=== PATIENT | female | born 1985 | race Caucasian/White ===

== ENCOUNTER 2019-01-12 19:27 | Emergency (ER) | payer BC ==
--- OUTSIDE RECORDS SUMMARY | 2019-01-12 19:30 | XMS REPORT ---
:1985 [facility] Address [address] [place] [address] Dr. Choi [address] [place] [id number] Care Team Providers Name Role Phone Unavailable Unavailable Unavailable Problems This patient has no known problems. Allergies, Adverse Reactions, Alerts This patient has no known allergies or adverse reactions. Medications This patient has no known medications.
[2019-01-12] MEDS ORDERED: NA CHLORIDE 0.9% 1,000 ML ONE (19:58)
[2019-01-12] MEDS ORDERED: MORPHINE 4 MG/ML SYR ONE (19:58)
[2019-01-12] MEDS ORDERED: ONDANSETRON 4 MG/2 ML VIAL ONE ×2 (19:58→23:57)
[2019-01-12 20:10] LABS: Absolute Lymphocytes (CBC) 2.6 K/uL (0.7-4.9); Basophils % 1.2 % (0-1.3); Hematocrit 43.8 % (36.0-45.0); Lymphocytes % 41.1 % (15.3-44.8); MPV 8.8 fL (7.6-11.3); RBC Red Blood Cell Count 4.81 M/uL (3.86-4.86)
[2019-01-12 20:26] LABS: Potassium 3.6 mmol/L (3.5-5.1)
[2019-01-12 20:32] LABS: Blood Morphology Comment NOT SEEN (NOT SEEN); Platelet Estimate ADEQ; Urine White Blood Cell Casts OK
[2019-01-12] MEDS ORDERED: FAMOTIDINE 20 MG/2 ML VIAL IV ONE (22:33)
--- NOTE | 2019-01-12 22:55 | ER ---
Nurse's Notes [facility] Name: Kayleen Catherine Age: 33 yrs Sex: Female : 1985 Arrival Date: 01/12/2019 Time: 19:30 Bed 19 Private MD: Diagnosis: Circumferential thickening of distal esophagus;Inability to tolerate PO intake Presentation: 01/12 19:44 Presenting complaint: Patient states: Vomiting since 1400 today, unable to tolerate lp1 drinking water; states hx of esophageal stricture; Complaint of chest pain. Transition of care: patient was not received from another setting of care. Onset of symptoms was January 12, 2019 at 14:00. Risk Assessment: Do you want to hurt yourself or someone else? Patient reports no desire to harm self or others. Initial Sepsis Screen: Does the patient meet any 2 criteria? No. Patient's initial sepsis screen is negative. Does the patient have a suspected source of infection? No. Patient's initial sepsis screen is negative. Care prior to arrival: None. 19:44 Method Of Arrival: Ambulatory lp1 19:44 Acuity: SELMA 3 lp1 Triage Assessment: 19:47 General: Appears uncomfortable. GI: Pt is actively vomiting. lp1 19:55 GI: Reports vomiting, since this afternoon. 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 - Social history:: Smoking status: Patient/guardian denies using tobacco. - Ebola Screening: : No symptoms or risks identified at this time. Screenin:47 Abuse screen: Denies threats or abuse. Denies injuries from another. Nutritional lp1 screening: No deficits noted. Tuberculosis screening: No symptoms or risk factors identified. Fall Risk None identified. Assessment: 19:55 General: Appears in no apparent distress. uncomfortable, Behavior is cooperative, cc3 anxious. Pain: Complains of pain in abdomen epigastric area. Neuro: Level of Consciousness is awake, alert, obeys commands, Oriented to person, place, time, situation, Appropriate for age. Cardiovascular: Denies chest pain, Capillary refill < 3 seconds Patient's skin is warm and dry. Respiratory: Airway is patent Respiratory effort is even, unlabored, Respiratory pattern is regular, symmetrical. GI: Abdomen is round non-distended. : No signs and/or symptoms were reported regarding the genitourinary system. EENT: No signs and/or symptoms were reported regarding the EENT system. Derm: Skin is intact, is healthy with good turgor, Skin is pink, warm \T\ dry. normal. Musculoskeletal: Circulation, motion, and sensation intact. Range of motion: intact in all extremities. 20:15 Reassessment: Patient appears in no apparent distress at this time. Patient and/or cc3 family updated on plan of care and expected duration. Pain level reassessed. Patient is alert, oriented x 3, equal unlabored respirations, skin warm/dry/pink. Patient said she sipped the soda 3x and she vomited 3x as well, GEORGES Moura informed. 20:45 Reassessment: Patient taken to CT scan department by the electrical electronics technician by wheelchair. cc3 21:02 Reassessment: Patient appears in no apparent distress at this time. Patient and/or cc3 family updated on plan of care and expected duration. Pain level reassessed. Patient is alert, oriented x 3, equal unlabored respirations, skin warm/dry/pink. Patient came back from CT scan department, awaiting result. Patient states feeling better. 22:24 Reassessment: Patient appears in no apparent distress at this time. Patient and/or cc3 family updated on plan of care and expected duration. Pain level reassessed. Patient is alert, oriented x 3, equal unlabored respirations, skin warm/dry/pink. Patient said she cannot tolerate drinking water, GEORGES Moura informed and said patient will be for transfer. 22:50 Reassessment: GEORGES Moura said the patient was accepted in [facility] but they don't cc3 have vacant beds as of the meantime, patient informed. 23:41 Reassessment: Patient appears in no apparent distress at this time. Patient and/or cc3 family updated on plan of care and expected duration. Pain level reassessed. Patient is alert, oriented x 3, equal unlabored respirations, skin warm/dry/pink. Patient tolerated to sip some water and said she felt a little better now though still nauseated, CUSTOMER SALES REPRESENTATIVE Martell informed. 01/13 00:15 Reassessment: Patient appears in no apparent distress at this time. Patient and/or cc3 family updated on plan of care and expected duration. Pain level reassessed. Patient is alert, oriented x 3, equal unlabored respirations, skin warm/dry/pink. Patient for transfer now to [facility] patient informed, report called and handed over to RN [place]. Transfer form completed and signed by the patient herself. ED statement distribution clerk Amy to call ground EMS for patient transport. 00:45 Reassessment: Patient appears in no apparent distress at this time. Patient and/or cc3 family updated on plan of care and expected duration. Pain level reassessed. Patient is alert, oriented x 3, equal unlabored respirations, skin warm/dry/pink. EMS came for patient transport. Patient left ER vitally stable by EMS stretcher. No valuables left in the patient's room. Patient states feeling better. Patient states symptoms have improved. Vital Signs: 01/12 19:45 BP 142 / 100; Pulse 134; Resp 18; Temp 97.6(TE); Pulse Ox 100% on R/A; Weight 77.11 kg; lp1 Height 5 ft. 8 in. (172.72 cm); Pain 8/10; 20:15 BP 122 / 94; Pulse 87; Resp 20 S; Pulse Ox 100% on R/A; cc3 21:06 BP 127 / 86; Pulse 78; Resp 20 S; Pulse Ox 100% on R/A; Pain 5/10; cc3 22:23 BP 122 / 86; Pulse 85; Resp 17 S; Pulse Ox 99% on R/A; cc3 23:41 BP 135 / 90; Pulse 76; Resp 18 S; Pulse Ox 100% on R/A; Pain 4/10; cc3 01/13 00:45 BP 116 / 88; Pulse 80; Resp 17 S; Pulse Ox 100% on R/A; Pain 4/10; cc3 01/12 19:45 Body Mass Index 25.85 (77.11 kg, 172.72 cm) lp1 ED Course: 01/12 19:30 Patient arrived in ED. cf2 19:43 Sangita Moura FNP-C [facility]. kb 19:43 Jose Guadalupe Veras MD is Attending Physician. kb 19:45 Triage completed. lp1 19:46 Arm band placed on. lp1 19:50 Inserted saline lock: 20 gauge in right antecubital area, using aseptic technique. cc3 Blood collected. 19:55 Shahrzad Freed is Primary Nurse. cc3 19:55 Patient has correct armband on for positive identification. Placed in gown. Bed in low cc3 position. Call light in reach. Side rails up X 1. Pulse ox on. NIBP on. 20:55 CT completed. Patient tolerated procedure well. Patient moved to CT via wheelchair. nj Patient moved back from CT. 21:10 CT Chest W/ Con In Process Unspecified. EDMS 01/13 00:50 No provider procedures requiring assistance completed. Patient transferred, IV remains cc3 in place. Administered Medications: 01/12 19:55 Drug: NS 0.9% 1000 ml Route: IV; Rate: 1000 ml; Site: right antecubital; cc3 21:15 Follow up: Response: No adverse reaction; IV Status: Completed infusion; IV Intake: cc3 1000ml 19:55 Drug: morphine 4 mg {Note: RASS 0.} Route: IVP; Site: right antecubital; cc3 21:07 Follow up: Response: No adverse reaction; Pain is decreased; RASS: Alert and Calm (0) cc3 20:00 Drug: Zofran 4 mg Route: IVP; Site: right antecubital; cc3 21:08 Follow up: Response: No adverse reaction; Nausea is decreased; Vomiting decreased cc3 22:35 Drug: Pepcid 20 mg Route: IVP; Site: right antecubital; cc3 23:00 Follow up: Response: No adverse reaction; Pain is unchanged, physician notified cc3 23:00 Drug: Glucagon 1 mg Route: IVP; Site: right antecubital; cc3 23:41 Follow up: Response: No adverse reaction; Marked relief of symptoms cc3 23:59 Drug: Zofran 4 mg Route: IVP; Site: right antecubital; cc3 01/13 00:30 Follow up: Response: No adverse reaction; Nausea is decreased cc3 Intake: 01/12 21:15 IV: 1000ml; Total: 1000ml. cc3 Outcome: 22:53 ER care complete, transfer ordered by MD. enriquez 01/13 00:50 Transferred by ground EMS to [facility], Transfer form completed. cc3 Condition: stable Instructed on the need for transfer. 00:58 Patient left the ED. cc3 Signatures: Dispatcher [employer] EDMS Sangita Moura, INDUCTION MACHINE SETTER-C INDUCTION MACHINE SETTER-Ckb Regla Acosta, RN RN lp1 Rene Gaston Charlene cc3 Nevaeh Umanzor cf2 Corrections: (The following items were deleted from the chart) 01/12 21:12 20:15 Reassessment: Patient said she sipped the soda 3x and she vomited 3x as well, CUSTOMER SALES REPRESENTATIVE cc3 Martell informed. cc3 22:36 22:24 Reassessment: Patient appears in no apparent distress at this time. Patient cc3 and/or family updated on plan of care and expected duration. Pain level reassessed. Patient is alert, oriented x 3, equal unlabored respirations, skin warm/dry/pink. Patient said she cannot tolerate drinking water, CUSTOMER SALES REPRESENTATIVE Martell informed. cc3 23:42 21:06 BP 127 / 86; Pulse 78bpm; Resp 20bpm; Spontaneous; Pulse Ox 100% RA; cc3 cc3 23:54 23:41 Reassessment: Patient appears in no apparent distress at this time. Patient cc3 and/or family updated on plan of care and expected duration. Pain level reassessed. Patient is alert, oriented x 3, equal unlabored respirations, skin warm/dry/pink. cc3 01/13 01:22 01/12 23:41 BP 135 / 90; Pulse 76bpm; Resp 18bpm; Spontaneous; Pulse Ox 100% RA; cc3 cc3 01/13 01: 00:45 BP 116 / 88; Pulse 80bpm; Resp 17bpm; Spontaneous; Pulse Ox 100% RA; cc3 cc3
--- NOTE | 2019-01-12 22:56 | EDPHYS ---
Physician Documentation [facility] Name: Kayleen Catherine Age: 33 yrs Sex: Female : 1985 Arrival Date: 01/12/2019 Time: 19:30 Bed 19 Private MD: ED Physician Jose Guadalupe Veras HPI: 01/12 21:38 This 33 yrs old Female presents to ER via Ambulatory with complaints of kb Nausea/Vomiting. 21:38 The patient presents to the emergency department with nausea, vomiting. Onset: The kb symptoms/episode began/occurred at 14:00. Possible causes: edith pill and peanuts possibly stuck in esophagus. The symptoms are aggravated by nothing. The symptoms are alleviated by nothing. Associated signs and symptoms: Pertinent positives: nausea, vomiting. Severity of symptoms: At their worst the symptoms were moderate in the emergency department the symptoms are unchanged. The patient has experienced similar episodes in the past, a few times. The patient has not recently seen a physician. Pt reports she has an esophageal sticture and thinks the edith that she took earlier got stuck. States she ate some nuts after that and has tried to drink water but has been vomiting since 1400. Unable to keep anything down. 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 - Social history:: Smoking status: Patient/guardian denies using tobacco. - Ebola Screening: : No symptoms or risks identified at this time. ROS: 21:37 Constitutional: Negative for fever, chills, and weight loss, ENT: Negative for injury, kb pain, and discharge, Neck: Negative for injury, pain, and swelling, Respiratory: Negative for shortness of breath, cough, wheezing, and pleuritic chest pain, Back: Negative for injury and pain, MS/Extremity: Negative for injury and deformity, Skin: Negative for injury, rash, and discoloration, Neuro: Negative for headache, weakness, numbness, tingling, and seizure. 21:37 Cardiovascular: Positive for chest pain. 21:37 Abdomen/GI: Positive for nausea and vomiting. Exam: 21:37 Head/Face: Normocephalic, atraumatic. ENT: Nares patent. No nasal discharge, no kb septal abnormalities noted. Tympanic membranes are normal and external auditory canals are clear. Oropharynx with no redness, swelling, or masses, exudates, or evidence of obstruction, uvula midline. Mucous membranes moist. Neck: Trachea midline, no thyromegaly or masses palpated, and no cervical lymphadenopathy. Supple, full range of motion without nuchal rigidity, or vertebral point tenderness. No Meningismus. Chest/axilla: Normal chest wall appearance and motion. Nontender with no deformity. No lesions are appreciated. Cardiovascular: Regular rate and rhythm with a normal S1 and S2. No gallops, murmurs, or rubs. Normal PMI, no JVD. No pulse deficits. Respiratory: Lungs have equal breath sounds bilaterally, clear to auscultation and percussion. No rales, rhonchi or wheezes noted. No increased work of breathing, no retractions or nasal flaring. Abdomen/GI: Soft, non-tender, with normal bowel sounds. No distension or tympany. No guarding or rebound. No evidence of tenderness throughout. Skin: Warm, dry with normal turgor. Normal color with no rashes, no lesions, and no evidence of cellulitis. MS/ Extremity: Pulses equal, no cyanosis. Neurovascular intact. Full, normal range of motion. Neuro: Awake and alert, GCS 15, oriented to person, place, time, and situation. Cranial nerves II-XII grossly intact. Motor strength 5/5 in all extremities. Sensory grossly intact. Cerebellar exam normal. Normal gait. 21:37 Constitutional: The patient appears alert, awake, uncomfortable. kb Vital Signs: 19:45 BP 142 / 100; Pulse 134; Resp 18; Temp 97.6(TE); Pulse Ox 100% on R/A; Weight 77.11 kg; lp1 Height 5 ft. 8 in. (172.72 cm); Pain 8/10; 20:15 BP 122 / 94; Pulse 87; Resp 20 S; Pulse Ox 100% on R/A; cc3 21:06 BP 127 / 86; Pulse 78; Resp 20 S; Pulse Ox 100% on R/A; Pain 5/10; cc3 22:23 BP 122 / 86; Pulse 85; Resp 17 S; Pulse Ox 99% on R/A; cc3 23:41 BP 135 / 90; Pulse 76; Resp 18 S; Pulse Ox 100% on R/A; Pain 4/10; cc3 01/13 00:45 BP 116 / 88; Pulse 80; Resp 17 S; Pulse Ox 100% on R/A; Pain 4/10; cc3 01/12 19:45 Body Mass Index 25.85 (77.11 kg, 172.72 cm) lp1 MDM: 01/12 19:43 Patient medically screened. kb 21:37 Data reviewed: vital signs, nurses notes. Data interpreted: Pulse oximetry: on room air kb is 100 %. Interpretation: normal. 22:08 Counseling: I had a detailed discussion with the patient and/or guardian regarding: the kb historical points, exam findings, and any diagnostic results supporting the discharge/admit diagnosis, lab results, radiology results, the need to transfer to another facility, [facility] does not immediately have the required specialist. ED course: Pt has been unable to tolerate anything by mouth. Educated on CT results showing circumferential thickening of the distal esophagus and need for transfer due to inability to tolerate PO and no GI agricultural education instructor. Pt does not want to be transferred. Would like to try to drink some water again. Reports she has been able to tolerate a few ice chips. 22:25 ED course: Pt unable to tolerate water. Agrees to transfer. kb 22:50 ED course: Spoke to GI and hospitalist at [facility]. Both accept pt. GI kb recommended we try glucagon while awaiting transfer. 23:46 ED course: [facility] transfer center called back and denied the transfer due to capacity. kb Transfer initiated to Jose.. ED course: Jose [facility] accepts pt for consult. Awaiting hospitalist.. 01/12 19:52 Order name: CBC with Diff; Complete Time: 20:36 kb 01/12 19:52 Order name: Basic Metabolic Panel; Complete Time: 20:28 kb 01/12 20:18 Order name: CBC Smear Scan; Complete Time: 20:36 EDMS 01/12 20:37 Order name: CT Chest W/ Con kb 01/12 19:52 Order name: IV Start; Complete Time: 19:55 kb 01/12 19:52 Order name: PO challenge: soda through a straw; Complete Time: 20:20 kb Administered Medications: 19:55 Drug: NS 0.9% 1000 ml Route: IV; Rate: 1000 ml; Site: right antecubital; cc3 21:15 Follow up: Response: No adverse reaction; IV Status: Completed infusion; IV Intake: cc3 1000ml 19:55 Drug: morphine 4 mg {Note: RASS 0.} Route: IVP; Site: right antecubital; cc3 21:07 Follow up: Response: No adverse reaction; Pain is decreased; RASS: Alert and Calm (0) cc3 20:00 Drug: Zofran 4 mg Route: IVP; Site: right antecubital; cc3 21:08 Follow up: Response: No adverse reaction; Nausea is decreased; Vomiting decreased cc3 22:35 Drug: Pepcid 20 mg Route: IVP; Site: right antecubital; cc3 23:00 Follow up: Response: No adverse reaction; Pain is unchanged, physician notified cc3 23:00 Drug: Glucagon 1 mg Route: IVP; Site: right antecubital; cc3 23:41 Follow up: Response: No adverse reaction; Marked relief of symptoms cc3 23:59 Drug: Zofran 4 mg Route: IVP; Site: right antecubital; cc3 01/13 00:30 Follow up: Response: No adverse reaction; Nausea is decreased cc3 Disposition: 01:09 Co-signature as Attending Physician, Jose Guadalupe Veras MD I agree with the assessment and kdr plan of care. Disposition: 01/12/19 22:53 Transfer ordered to [facility]. Diagnosis are Circumferential thickening of distal esophagus, Inability to tolerate PO intake. - Reason for transfer: Higher level of care. - Accepting physician is Dr Torres Garcia. - Condition is Stable. - Problem is new. - Symptoms are unchanged. Signatures: Dispatcher [employer] EDMS Sangita Moura, AUTOMOBILE DESIGNER-C NICHO-Jose Guadalupe Aguilar MD MD [facility] Regla Acosta RN RN lp1 Shahrzad Freed cc3 Corrections: (The following items were deleted from the chart) 01/12 21:38 21:37 Constitutional: This is a well developed, well nourished patient who is awake, kb alert, and in no acute distress. Head/Face: Normocephalic, atraumatic. ENT: Nares patent. No nasal discharge, no septal abnormalities noted. Tympanic membranes are normal and external auditory canals are clear. Oropharynx with no redness, swelling, or masses, exudates, or evidence of obstruction, uvula midline. Mucous membranes moist. Neck: Trachea midline, no thyromegaly or masses palpated, and no cervical lymphadenopathy. Supple, full range of motion without nuchal rigidity, or vertebral point tenderness. No Meningismus. Chest/axilla: Normal chest wall appearance and motion. Nontender with no deformity. No lesions are appreciated. Cardiovascular: Regular rate and rhythm with a normal S1 and S2. No gallops, murmurs, or rubs. Normal PMI, no JVD. No pulse deficits. Respiratory: Lungs have equal breath sounds bilaterally, clear to auscultation and percussion. No rales, rhonchi or wheezes noted. No increased work of breathing, no retractions or nasal flaring. Abdomen/GI: Soft, non-tender, with normal bowel sounds. No distension or tympany. No guarding or rebound. No evidence of tenderness throughout. Skin: Warm, dry with normal turgor. Normal color with no rashes, no lesions, and no evidence of cellulitis. MS/ Extremity: Pulses equal, no cyanosis. Neurovascular intact. Full, normal range of motion. Neuro: Awake and alert, GCS 15, oriented to person, place, time, and situation. Cranial nerves II-XII grossly intact. Motor strength 5/5 in all extremities. Sensory grossly intact. Cerebellar exam normal. Normal gait. kb 23:53 22:53 01/12/2019 22:53 Transfer ordered to [facility]. Diagnosis is kb Circumferential thickening of distal esophagus; Inability to tolerate PO intake. Reason for transfer: Higher level of care. Accepting physician is [facility]. Condition is Stable. Problem is new. Symptoms are unchanged. kb 01/13 00:58 01/12 23:53 01/12/2019 22:53 Transfer ordered to [facility]. cc3 Diagnosis is Circumferential thickening of distal esophagus; Inability to tolerate PO intake. Reason for transfer: Higher level of care. Accepting physician is Dr Torres Garcia. Condition is Stable. Problem is new. Symptoms are unchanged. kb
[2019-01-12] MEDS ORDERED: GLUCAGON 1 MG/VIAL ONE (23:01)
--- NOTE | 2019-01-13 11:34 | RAD REPORT ---
EXAM DESCRIPTION: CT - Thorax W/ Con - 01/12/2019 9:43 pm CLINICAL HISTORY: Esophageal stricture, FB TECHNIQUE: Axial computed tomography images of the chest with intravenous contrast. Sagittal and c oronal reformatted images were created and reviewed. This CT exam was performed using one or more o f the following dose reduction techniques: automated exposure control, adjustment of the mA and/or kV according to patient size, and/or use of iterative reconstruction technique. COMPARISON: No relevant prior studies available. FINDINGS: Limitations: None. Lungs: Unremarkable. No mass. No consolidation. Pleural space: Unremarkable. No pneumothorax. No significant effusion. Heart: Unremarkable. No cardiomegaly. No significant pericardial effusion. Mediastinum: Mild circumferential thickening of the approximate 2 cm of distal esophagus. No e sophageal foreign body noted. Bones/joints: Unremarkable. No acute fracture. No dislocation. Soft tissues: Unremarkable. Vasculature: Unremarkable. No thoracic aortic aneurysm. Lymph nodes: Unremarkable. No enlarged lymph nodes. IMPRESSION: Mild circumferential thickening of the approximate 2 cm of distal esophagus. No esopha geal foreign body noted. Electronically signed by: Sophie Luna MD 01/12/2019 9:26 PM CDT Due to temporary technical issues with the PACS/Fluency reporting system, reports are being signed by the in house radiologist as a courtesy to ensure prompt reporting. The interpreting radiologist is f liliyaly responsible for the content of the report.
== END 2019-01-13 00:58 | disposition short-term general hospital (02) ==
LOC: ER 19:27
DX: K22.8 Other specified diseases of esophagus (principal); Z88.7 Allergy status to serum and vaccine
CPT/HCPCS: 96361; 85025; 80048; 36415; 71260; 96375; 96374; 99285; Q9967; J1610; J7030; J2405 ×2

== ENCOUNTER 2019-08-19 20:17 | Emergency (ER) | payer BC, SELFPAY ==
--- OUTSIDE RECORDS SUMMARY | 2019-08-19 20:18 | XMS REPORT ---
:1985 Author Organization [facility] t Address [address] [place] [address] Dr. Choi [address] [place] [id number] Care Team Providers Name Role Phone Unavailable Unavailable Unavailable Problems This patient has no known problems. Allergies, Adverse Reactions, Alerts This patient has no known allergies or adverse reactions. Medications This patient has no known medications.
[2019-08-19 21:06] LABS: Absolute Lymphocytes (CBC) 2.2 K/uL (0.7-4.9); Basophils % 0.9 % (0-1.3); Lymphocytes % 34.8 % (15.3-44.8); MPV 9.3 fL (7.6-11.3); RBC Red Blood Cell Count 4.47 M/uL (3.86-4.86)
[2019-08-19 21:29] LABS: Albumin 4.1 g/dL (3.4-5.0); Bilirubin Total 0.6 mg/dL (0.2-1.0); Potassium 3.5 mmol/L (3.5-5.1); Protein, Total 7.5 g/dL (6.4-8.2)
[2019-08-19] MEDS ORDERED: ACETAMINOPHEN 500 MG TAB ONE (21:34)
[2019-08-19 22:19] LABS: NT PRO-BNP 87 pg/mL (<125); Troponin (Emerg Dept Use Only) < 0.02 ng/mL (0.0-0.045)
--- NOTE | 2019-08-19 23:17 | ER ---
[facility] Name: Kayleen Catherine Age: 34 yrs Sex: Female : 1985 Arrival Date: 08/19/2019 Time: 20:21 Bed 20 Private MD: Diagnosis: Acute upper respiratory infection, unspecified Presentation: 08/18 20:26 Chief complaint: Patient states: Dry cough, dyspnea, SOB since last night. Low grade ll1 fever 99.5 at home. Coronavirus screen: Patient reports a cough. Patient reports shortness of breath or difficulty breathing. Patient denies measured and/or subjective temperature greater than 100.4F prior to today's visit. Patient denies travel on a cruise ship or to a country the [facility] currently lists as an affected area. Patient reports contact with known and/or suspected case of COVID-19. Coronavirus screen: Had covid positive patients in ED, PPE worn. Ebola Screen: Patient denies travel to an Ebola-affected area in the 21 days before illness onset. Initial Sepsis Screen: Does the patient meet any 2 criteria? No. Patient's initial sepsis screen is negative. Risk Assessment: Do you want to hurt yourself or someone else? Patient reports no desire to harm self or others. Onset of symptoms was August 18, 2019. 20:26 Method Of Arrival: Ambulatory ll1 20:26 Acuity: SELMA 3 ll1 Historical: - Allergies: 20:30 Tamiflu; ll1 - PMHx: 20:30 Esophageal stricture; ll1 - PSHx: 21:05 Hysterectomy; sg - Social history:: Patient uses alcohol, only on a social basis. Patient/guardian denies using street drugs, tobacco products. Screenin:45 Abuse screen: Denies threats or abuse. Denies injuries from another. Nutritional sg screening: No deficits noted. Tuberculosis screening: No symptoms or risk factors identified. Fall Risk None identified. Assessment: 21:02 General: Appears in no apparent distress. well groomed, well developed, well nourished, sg Behavior is calm, cooperative, appropriate for age. Pain: Complains of pain in chest Quality of pain is described as aching. Neuro: Level of Consciousness is awake, alert, obeys commands, Oriented to person, place, time, Speech is normal. Cardiovascular: Capillary refill is brisk in bilateral fingers Patient's skin is warm and dry. Chest pain is described as vague, is located in anterior chest wall. Respiratory: Reports shortness of breath at rest on exertion having wheezing last night Airway is patent Respiratory effort is even, unlabored. Respiratory: Reports cough that is non-productive, dry. GI: Abdomen is round non-distended, Reports tolerance of fluids, tolerance of food. : No signs and/or symptoms were reported regarding the genitourinary system. EENT: Nares are clear bilaterally Oral mucosa is moist. Throat is pink. Derm: Skin is pink, warm \T\ dry. Musculoskeletal: Circulation, motion, and sensation intact. Range of motion: intact in all extremities. 21:06 Reassessment: xray at bedside at this time, awaiting lab results, will continue to sg monitor. 21:30 Reassessment: Patient appears in no apparent distress at this time. Patient and/or sg family updated on plan of care and expected duration. Pain level reassessed. Patient is alert, oriented x 3, equal unlabored respirations, skin warm/dry/pink. pt reports a headache, SHEET METAL LAYOUT WORKER notified and orders received for tylenol 1 gm, pt medicated see EMAR Patient states symptoms have not improved. 21:45 Reassessment: lab contacted spoke with [place], reports to send labels for troponin and sg BNP testing, labels have been sent, awaiting CT scan at this time. Vital Signs: 20:26 BP 132 / 95; Pulse 72; Resp 17; Temp 98.3; Pulse Ox 100% ; Pain 6/10; ll1 21:00 BP 128 / 90; Pulse 68; Resp 18; Pulse Ox 100% on R/A; sg 22:00 BP 118 / 85; Pulse 67; Resp 16; Temp 97.9(O); Pulse Ox 97% on R/A; sg ED Course: 20:21 Patient arrived in ED. cl3 20:22 Moy Granados NP is PHCP. pm1 20:22 Nathanael Wilson MD is Attending Physician. pm1 20:27 Osmin Bran, PADMINI is Primary Nurse. sg 20:29 Triage completed. ll1 20:30 Arm band placed on Patient placed in an exam room, on a stretcher. ll1 20:40 Patient has correct armband on for positive identification. Bed in low position. Call sg light in reach. Pulse ox on. NIBP on. Warm blanket given. Head of bed elevated. 20:45 Initial lab(s) drawn, by me, sent to lab. First set of blood cultures drawn by me and sg held. Flu and/or RSV swab sent to lab. Strep swab sent to lab. Inserted saline lock: 20 gauge in right antecubital area, using aseptic technique. Blood collected. 20:50 A covid 19 swab has been collected at this time and walked to the lab as per hospital sg policy. 21:09 Chest Single View XRAY In Process Unspecified. EDMS 21:52 EKG done, by ED staff, reviewed by Moy Granados MEAT TRIMMER. sg 22:[address] via stretcher. sg 22:32 CT Chest For PE Angio In Process Unspecified. EDMS 23:30 No provider procedures requiring assistance completed. IV discontinued, intact, sg bleeding controlled, No redness/swelling at site. Pressure dressing applied. Administered Medications: 21:36 Drug: Tylenol 1000 mg Route: PO; sg 22:02 Follow up: Response: No adverse reaction; Pain is decreased sg 23:29 Drug: predniSONE 60 mg Route: PO; Outcome: 23:16 Discharge ordered by MD. pm1 23:30 Discharged to home ambulatory. sg 23:30 Condition: good 23:30 Instructed on discharge instructions, follow up and referral plans. medication usage, safety practices, Demonstrated understanding of instructions, follow-up care, medications, Prescriptions given X 2. 23:38 Patient left the ED. Addendum: 08/21/2019 08:43 Addendum: Other PUI# [id number]. i w Signatures: Dispatcher [employer] EDOsmin Garcia RN RN sg Williams, Irene, RN RN Moy Graandos NP MEAT TRIMMER pm1 Idalai Duval cl3 Kennedy Duval RN RN ll1 Corrections: (The following items were deleted from the chart) 08/18 21:05 20:30 PSHx: None; ll1
--- NOTE | 2019-08-19 23:17 | EDPHYS ---
Physician Documentation [facility] Name: Kayleen Catherine Age: 34 yrs Sex: Female : 1985 Arrival Date: 08/19/2019 Time: 20:21 Bed 20 Private MD: ED Physician Nathanael Wilson HPI: 08/18 20:37 This 34 yrs old Female presents to ER via Ambulatory with complaints of pm1 Shortness Of Breath. 20:37 The patient or guardian reports cough, with no sputum. Onset: The symptoms/episode pm1 began/occurred last night. Severity of symptoms: in the emergency department the symptoms are actually worse. Modifying factors: The symptoms are alleviated by nothing, the symptoms are aggravated by nothing. Associated signs and symptoms: Pertinent positives: fever, Tmax 99.5, Pertinent negatives: chest pain, diarrhea, vomiting. Historical: - Allergies: 20:30 Tamiflu; ll1 - PMHx: 20:30 Esophageal stricture; ll1 - PSHx: 21:05 Hysterectomy; sg - Social history:: Patient uses alcohol, only on a social basis. Patient/guardian denies using street drugs, tobacco products. ROS: 20:37 ENT: Negative for injury, pain, and discharge, Cardiovascular: Negative for chest pain, pm1 palpitations, and edema. 20:37 Abdomen/GI: Negative for abdominal pain, nausea, vomiting, diarrhea, and constipation, Back: Negative for injury and pain, MS/Extremity: Negative for injury and deformity, Skin: Negative for injury, rash, and discoloration. 20:37 Neuro: Negative for headache, weakness, numbness, tingling, and seizure. 20:37 Constitutional: Positive for fever. 20:37 Respiratory: Positive for cough, shortness of breath, Negative for sputum production. Exam: 20:37 Constitutional: This is a well developed, well nourished patient who is awake, alert, pm1 and in no acute distress. Head/Face: Normocephalic, atraumatic. Chest/axilla: Normal chest wall appearance and motion. Nontender with no deformity. No lesions are appreciated. 20:37 Abdomen/GI: Soft, non-tender, with normal bowel sounds. No distension or tympany. No guarding or rebound. No evidence of tenderness throughout. Skin: Warm, dry with normal turgor. Normal color with no rashes, no lesions, and no evidence of cellulitis. MS/ Extremity: Pulses equal, no cyanosis. Neurovascular intact. Full, normal range of motion. 20:37 Cardiovascular: Exam negative for acute changes, Pulses: no pulse deficits are appreciated, Edema: is not appreciated. 20:37 Respiratory: Exam negative for acute changes, respiratory distress, shortness of breath, wheezing. 20:37 Neuro: Exam negative for acute changes, Orientation: is normal, Motor: moves all fours, Gait: is steady, at a normal pace, without difficulty. Vital Signs: 20:26 BP 132 / 95; Pulse 72; Resp 17; Temp 98.3; Pulse Ox 100% ; Pain 6/10; ll1 21:00 BP 128 / 90; Pulse 68; Resp 18; Pulse Ox 100% on R/A; sg 22:00 BP 118 / 85; Pulse 67; Resp 16; Temp 97.9(O); Pulse Ox 97% on R/A; sg MDM: 20:25 Patient medically screened. pm1 22:31 Data reviewed: vital signs. Data interpreted: Pulse oximetry: on room air is 97 %. pm1 Interpretation: normal. 23:15 Counseling: I had a detailed discussion with the patient and/or guardian regarding: the pm1 historical points, exam findings, and any diagnostic results supporting the discharge/admit diagnosis, lab results, radiology results, the need for outpatient follow up, to return to the emergency department if symptoms worsen or persist or if there are any questions or concerns that arise at home. 23:32 ED course: MASK DESIGNER aware reviewed for patient. pm1 08/18 20:27 Order name: CBC with Diff; Complete Time: 21:15 pm1 08/18 20:27 Order name: CMP; Complete Time: 21:38 pm1 08/18 20:27 Order name: D-Dimer; Complete Time: 21:15 pm08/18 20:27 Order name: Flu; Complete Time: 21:38 pm1 08/18 20:27 Order name: Strep; Complete Time: 21:28 pm1 08/18 20:27 Order name: COVID-19 pm1 08/18 20:27 Order name: Chest Single View XRAY pm1 08/18 21:28 Order name: Throat Culture EDMS 08/18 21:41 Order name: CT Chest For PE Angio shiv 08/18 21:41 Order name: EKG; Complete Time: 21:41 [facility] 08/18 21:41 Order name: Troponin (emerg Dept Use Only); Complete Time: 22:22 [facility] 08/18 21:41 Order name: BNP; Complete Time: 22:22 [facility] 08/18 21:08 Order name: IV Saline Lock; Complete Time: 21:09 08/18 21:41 Order name: EKG - Nurse/Tech; Complete Time: 22:02 [facility] Administered Medications: 21:36 Drug: Tylenol 1000 mg Route: PO; sg 22:02 Follow up: Response: No adverse reaction; Pain is decreased sg 23:29 Drug: predniSONE 60 mg Route: PO; sg Disposition: 08/19/19 23:16 Discharged to Home. Impression: Acute upper respiratory infection, unspecified. - Condition is Stable. - Discharge Instructions: Upper Respiratory Infection, Adult. - Prescriptions for Medrol (Sylvester) 4 mg Oral Tablets, Dose Pack - take 1 tablet by ORAL route as directed - follow package instructions; 1 packet. Albuterol Sulfate 90 mcg/actuation - inhale 1-2 puff by INHALATION route every 4-6 hours; 1 Inhaler. Guaifenesin AC 10- 100 mg/5 mL Oral Liquid - take 10 milliliter by ORAL route every 4 hours As needed; 240 milliliter. - Work release form, Medication Reconciliation Form, Thank You Letter, Antibiotic Education, Prescription Opioid Use form. - Follow up: Emergency Department; When: As needed; Reason: Worsening of condition. Follow up: Private Physician; When: 2 - 3 days; Reason: Recheck today's complaints, Continuance of care, Re-evaluation by your physician. - Problem is new. - Symptoms have improved. Addendum: 08/21/2019 07:41 Co-signature as Attending Physician, Nathanael Wilson MD I agree with the assessment and c mcdaniel plan of care. Signatures: Dispatcher [employer] EDOsmin Garcia, RN Nathanael Nieto MD MD cha Marinas, Patrick, OPAL MINER OPAL MINER pm1 Kennedy Duval RN RN ll1 Corrections: (The following items were deleted from the chart) 08/18 21:05 20:30 PSHx: None; ll1 sg 23:38 23:16 08/19/2019 23:16 Discharged to Home. Impression: Acute upper respiratory sg infection, unspecified. Condition is Stable. Forms are Medication Reconciliation Form, Thank You Letter, Antibiotic Education, Prescription Opioid Use. Follow up: Emergency Department; When: As needed; Reason: Worsening of condition. Follow up: Private Physician; When: 2 - 3 days; Reason: Recheck today's complaints, Continuance of care, Re-evaluation by your physician. Problem is new. Symptoms have improved. pm1
[2019-08-19] MEDS ORDERED: predniSONE 20 MG TAB ONE (23:37)
[2019-08-19 23:55] VITALS: BP 118/85; TEMP 97.9; O2SAT 97
--- NOTE | 2019-08-20 08:08 | EKG ---
Test Date: 2019-08-19 Test Time: 21:54:59 Wood Turner: SWG MEASUREMENT RESULTS: Intervals: Rate: 75 CT: 154 QRSD: 84 QT: 396 QTc: 442 [place]: P: 70 CT: 154 QRS: 66 T: 31 INTERPRETIVE STATEMENTS: Normal sinus rhythm with sinus arrhythmia Possible Left atrial enlargement Nonspecific T wave abnormality Abnormal ECG Compared to ECG 03/22/2019 08:33:27 T-wave abnormality now present Sinus bradycardia no longer present Electronically Signed On 08-20-19 08:07:42 CDT by Anastacio Mayorga
--- NOTE | 2019-08-20 11:22 | RAD REPORT ---
EXAM DESCRIPTION: Hannah Single View08/19/2019 9:09 pm CLINICAL HISTORY: cough COMPARISON: none FINDINGS: The lungs appear clear of acute infiltrate. The heart is normal size IMPRESSION: No acute abnormalities displayed
--- NOTE | 2019-08-20 11:26 | RAD REPORT ---
EXAM DESCRIPTION: CT - Chest For Pe Angio - 08/20/2019 7:07 am CLINICAL HISTORY: Nonproductive cough, dyspnea, shortness of breath TECHNIQUE: Contiguous axial images obtained through the chest during angiographic phase following th e uneventful administration of IV contrast. Sagittal and coronal reformatted images were provided. SC P reformatted images were provided. This exam was performed according to our departmental dose-optimization program, which includes autom ated exposure control, adjustment of the mA and/or kV according to patient size and/or use of iterati ve reconstruction technique. COMPARISON: No prior exams provided for comparison. FINDINGS: Diagnostic quality: There is good opacification of the pulmonary arterial tree. Motion art ifact degrades image quality and limits evaluation of segmental and subsegmental vessels. Lungs: No focal consolidation. Airways are patent. Pleura: No effusion. No pneumothorax. Heart and pericardium: The heart is normal in size. No pericardial effusion. Mediastinum and gretchen: No pathologically enlarged lymph nodes. Lower neck and chest wall: Unremarkable Vessels: No pulmonary arterial filling defects. No thoracic aortic aneurysm. Upper abdomen: Unremarkable Bones: Minimal multilevel spondylosis. No acute fracture. IMPRESSION: 1. Motion artifact degrades image quality and limits evaluation of segmental and subse gmental vessels. No central pulmonary embolic disease. 2. No focal infiltrate. Electronically signed by: Miriam Sunshine MD 08/19/2019 11:10 PM CDT Due to temporary technical issues with the PACS/Fluency reporting system, reports are being signed by the in house radiologist as a courtesy to ensure prompt reporting. The interpreting radiologist is f ully responsible for the content of the report.
== END 2019-08-19 23:38 | disposition home or self-care (01) ==
LOC: ER 20:17
DX: J06.9 Acute upper respiratory infection, unspecified (principal); Z11.59 Encounter for screening for other viral diseases
CPT/HCPCS: 36415; 71045; 71275; 80053; 83880; 84484; 85025; 85379; 87070; 87081; 87804; 93005; 99285; J7512; U0001

== ENCOUNTER 2020-03-04 10:19 | Emergency (ER) | payer BC, OTHER, SELFPAY ==
[2020-03-04] MEDS ORDERED: dexAMETHasone 4 MG/ML VIAL ONE (11:04)
[2020-03-04] MEDS ORDERED: ONDANSETRON 4 MG/2 ML VIAL ONE ×2 (11:04→15:38)
[2020-03-04] MEDS ORDERED: FENTANYL CITR 100 MCG/2 ML ONE ×2 (11:04→12:58)
[2020-03-04] MEDS ORDERED: KETOROLAC 30 MG/ML INJ ONE (11:04)
[2020-03-04 11:19] LABS: Hematocrit 41.2 % (36.0-45.0); Lymphocytes % 35.9 % (15.3-44.8); MPV 9.1 fL (7.6-11.3); RBC Red Blood Cell Count 4.53 M/uL (3.86-4.86)
--- OUTSIDE RECORDS SUMMARY | 2020-03-04 11:35 | XMS REPORT | Continuity of Care Document ---
:[address] [facility] t Address [address] [place] [address] Dr. [address]oi [address] [place] [id number] Care Team Providers Name Role Phone Unavailable Unavailable Unavailable Problems This patient has no known problems. Allergies, Adverse Reactions, Alerts This patient has no known allergies or adverse reactions. Medications This patient has no known medications. Procedures This patient has no known procedures. Results This patient has no known results.
[2020-03-04 12:16] LABS: Urine Blood NEGATIVE (NEG); Urine Glucose NEGATIVE (NEG); Urine Protein NEGATIVE (NEG)
--- NOTE | 2020-03-04 15:30 | RAD REPORT ---
EXAM DESCRIPTION: MRI - Lumbar Spine Wo Con - 03/04/2020 3:17 pm CLINICAL HISTORY: URINARY INCONTINENCE ;Lower back pain;Numbness/tingling COMPARISON: No comparisons TECHNIQUE: Sagittal T1-weighted, T2-weighted and T2-STIR weighted sequences were obtained. Axial T1 -weighted and heavily T2-weighted sequenceswere obtained through the lumbar disc levels. FINDINGS: Lumbar bodies are normal in height and alignment. No suspicious marrow signal. No paraspi nal masses. Conus is normal with no clumping or thickening of the cauda equina. T12-L1 level: No significant findings. L1-2 level: No significant findings. L2-3 level: No significant findings. L3-4 level: Disc is desiccated. Mild circumferential disc bulge without canal or foramen stenosis. L4-5 level: The disc desiccation without significant disc bulge. The midline annular fissure is prese nt. The ligamentous thickening present. No canal or foramen stenosis. L5-S1 level: Facet degenerative change. No significant disc finding. There is minimal bulge in the mi dline. IMPRESSION: Degenerative changes are present as detailed. No spinal stenosis or foraminal encroachme nt. No acute vertebral body finding.
[2020-03-04] MEDS ORDERED: MORPHINE 4 MG/ML SYR ONE (15:38)
--- NOTE | 2020-03-04 15:39 | ER ---
Nurse's Notes [facility] Name: Kayleen Catherine Age: 34 yrs Sex: Female : 1985 Arrival Date: 03/04/2020 Time: 10:21 Bed 18 Private MD: Diagnosis: Radiculopathy, lumbar region;Low back pain Presentation: 03/04 10:35 Chief complaint: Patient states: Worsening back pain in left lower back. Has seen a dm5 chiropractor, alternating ibuprofen and tylenol for the last week with little relief. Pt states that she had an episode of incontinence yesterday. Pt has not take any medication today. Coronavirus screen: Client denies travel out of the [place] in the last 14 days. At this time, the client does not indicate any symptoms associated with coronavirus-19. Ebola Screen: Patient negative for fever greater than or equal to 101.5 degrees Fahrenheit, and additional compatible Ebola Virus Disease symptoms Patient denies exposure to infectious person. Patient denies travel to an Ebola-affected area in the 21 days before illness onset. No symptoms or risks identified at this time. Initial Sepsis Screen: Does the patient meet any 2 criteria? No. Patient's initial sepsis screen is negative. Does the patient have a suspected source of infection? No. Patient's initial sepsis screen is negative. Risk Assessment: Do you want to hurt yourself or someone else? Patient reports no desire to harm self or others. Onset of symptoms was February 2020. 10:35 Method Of Arrival: Ambulatory 5 10:35 Acuity: SELMA 3 dm5 Triage Assessment: 10:45 General: Appears in no apparent distress. uncomfortable, Behavior is cooperative, bp appropriate for age, anxious. Pain: Complains of pain in back. EENT: No deficits noted. Neuro: No deficits noted. Cardiovascular: No deficits noted. Respiratory: No deficits noted. GI: No signs and/or symptoms were reported involving the gastrointestinal system. : No signs and/or symptoms were reported regarding the genitourinary system. Derm: No deficits noted. Musculoskeletal: Circulation, motion, and sensation intact. Range of motion: intact in all extremities. Historical: - Allergies: 10:38 Tamiflu; dm5 - Immunization history:: Adult Immunizations up to date. - Social history:: Smoking status: Patient denies any tobacco usage or history of. Screenin:00 Abuse screen: Denies threats or abuse. Denies injuries from another. Nutritional bp screening: No deficits noted. Tuberculosis screening: No symptoms or risk factors identified. Fall Risk None identified. Assessment: 10:45 General: SEE TRIAGE NOTE. bp 11:59 Reassessment: No changes from previously documented assessment. RAD PENDING. bp 13:37 Reassessment: MRI CONTACTED, CURRENTLY MACHINE OCCUPIED Patient states symptoms have bp improved. 14:34 Reassessment: PT TO MRI WITH RODBUSTER. bp 15:30 Reassessment: Patient appears in no apparent distress at this time. Patient and/or bp family updated on plan of care and expected duration. Pain level reassessed. PT RETURNED FROM MRI. C/O PAIN, MEDICATION ORDERED AND GIVEN Patient states symptoms have improved. 16:00 Reassessment: PT D/C HOME VIA W/C WITH FAMILY, DX WITH LUMBAR RADICULOPATHY. bp Vital Signs: 11:00 BP 127 / 85; Pulse 69; Resp 16; Temp 97.9; Pulse Ox 99% ; bp 12:03 BP 118 / 71; Pulse 62; Resp 17; Pulse Ox 100% ; bp 13:39 BP 107 / 73; Pulse 68; Resp 16; Pulse Ox 100% ; bp 14:34 BP 114 / 73; Pulse 70; Resp 18; Pulse Ox 100% ; bp 15:29 BP 111 / 76; Pulse 73; Resp 16; Pulse Ox 98% ; bp ED Course: 10:21 Patient arrived in ED. as 10:29 Brian Powers, RN is Primary Nurse. bp 10:38 Triage completed. dm5 10:38 Arm band placed on Patient placed in an exam room. dm5 10:42 Nathanael Wilson MD is Attending Physician. shiv 10:43 Jersey Montero PA is PHCP. jr8 11:00 Patient has correct armband on for positive identification. Bed in low position. Call bp light in reach. Side rails up X2. 11:05 Inserted saline lock: 20 gauge in right antecubital area, using aseptic technique. bp Blood collected. 15:17 MRI Lumbar Spine wo Con In Process Unspecified. EDMS 16:00 No provider procedures requiring assistance completed. IV discontinued, intact, bp bleeding controlled, No redness/swelling at site. Pressure dressing applied. Administered Medications: 11:05 Drug: Decadron - Dexamethasone 10 mg Route: IVP; Site: right antecubital; bp 11:56 Follow up: Response: No adverse reaction bp 11:05 Drug: Robaxin 1 grams Route: IVPB; Infused Over: 1 hrs; Site: right antecubital; bp 16:01 Follow up: IV Status: Completed infusion; IV Intake: 100ml bp 11:05 Drug: TORadol - Ketorolac 15 mg Route: IVP; Site: right antecubital; bp 11:57 Follow up: Response: Pain is decreased bp 11:05 Drug: fentaNYL (PF) 50 mcg Route: IVP; Site: right antecubital; bp 11:58 Follow up: Response: Pain is decreased bp 11:05 Drug: Zofran (Ondansetron) 4 mg Route: IVP; Site: right antecubital; bp 11:58 Follow up: Response: No adverse reaction bp 12:50 Drug: fentaNYL (PF) 50 mcg Route: IVP; Site: right antecubital; bp 12:51 Follow up: Response: Pain is decreased bp 15:28 Drug: morphine 4 mg Route: IVP; Site: right antecubital; bp 15:31 Follow up: Response: No adverse reaction bp 15:29 Drug: Zofran (Ondansetron) 4 mg Route: IVP; Site: right antecubital; bp 15:31 Follow up: Response: No adverse reaction bp Intake: 16:01 IV: 100ml; Total: 100ml. bp Outcome: 15:38 Discharge ordered by MD. figueroa 16:00 Discharged to home via wheelchair, with family. bp 16:00 Condition: stable 16:00 Discharge instructions given to patient, Instructed on discharge instructions, follow up and referral plans. medication usage, Demonstrated understanding of instructions, follow-up care, medications, Prescriptions given X 2. 16:01 Patient left the ED. bp Signatures: Dispatcher [employer] EDMS Blanca Thomas, RN RN Nathanael Parker MD MD cha Martinez, Amelia as Roszak, Josh, PA PA [id number] Brian Powers RN RN bp Corrections: (The following items were deleted from the chart) 15:32 11:00 BP 127 / 85; Pulse 69bpm; Resp 16bpm; Pulse Ox 99%; bp bp
--- NOTE | 2020-03-04 15:39 | EDPHYS ---
Physician Documentation [facility] Name: Kayleen Catherine Age: 34 yrs Sex: Female : 1985 Arrival Date: 03/04/2020 Time: 10:21 Bed 18 Private MD: ED Physician Nathanael Wilson HPI: 03/04 10:59 This 34 yrs old Female presents to ER via Ambulatory with complaints of Back jr8 Pain. 10:59 The patient presents with pain that is acute. The symptoms are located in the low back. jr8 Onset: The symptoms/episode began/occurred acutely, today. The pain radiates to the right leg and left leg. Associated signs and symptoms: Pertinent positives: bladder incontinence. The problem was sustained from unknown cause. Modifying factors: The patient symptoms are alleviated by nothing, the patient symptoms are aggravated by any movement. Severity of symptoms: At their worst the symptoms were moderate, in the emergency department the symptoms are unchanged. The patient has not experienced similar symptoms in the past. The patient has not recently seen a physician. Patient stated that she has had on/off back pain and hip pain that has been treated by chiropractor. Today woke up with markedly increased low back pain, numbness to feet, and urinary dribbling . Historical: - Allergies: 10:38 Tamiflu; dm5 - Immunization history:: Adult Immunizations up to date. - Social history:: Smoking status: Patient denies any tobacco usage or history of. ROS: 10:59 Eyes: Negative for injury, pain, redness, and discharge, ENT: Negative for injury, jr8 pain, and discharge, Neck: Negative for injury, pain, and swelling, Cardiovascular: Negative for chest pain, palpitations, and edema, Respiratory: Negative for shortness of breath, cough, wheezing, and pleuritic chest pain, Abdomen/GI: Negative for abdominal pain, nausea, vomiting, diarrhea, and constipation, MS/Extremity: Negative for injury and deformity, Skin: Negative for injury, rash, and discoloration. 10:59 Back: Positive for decreased range of motion, pain at rest, pain with movement, radiated pain. 10:59 : Positive for bladder incontinence 10:59 Neuro: Positive for numbness, tingling, of the right foot and left foot. Exam: 13:55 Eyes: Pupils equal round and reactive to light, extra-ocular motions intact. Lids and jr8 lashes normal. Conjunctiva and sclera are non-icteric and not injected. Cornea within normal limits. Periorbital areas with no swelling, redness, or edema. ENT: Nares patent. No nasal discharge, no septal abnormalities noted. Tympanic membranes are normal and external auditory canals are clear. Oropharynx with no redness, swelling, or masses, exudates, or evidence of obstruction, uvula midline. Mucous membranes moist. Neck: Trachea midline, no thyromegaly or masses palpated, and no cervical lymphadenopathy. Supple, full range of motion without nuchal rigidity, or vertebral point tenderness. No Meningismus. Cardiovascular: Regular rate and rhythm with a normal S1 and S2. No gallops, murmurs, or rubs. Normal PMI, no JVD. No pulse deficits. Respiratory: Lungs have equal breath sounds bilaterally, clear to auscultation and percussion. No rales, rhonchi or wheezes noted. No increased work of breathing, no retractions or nasal flaring. Abdomen/GI: Soft, non-tender, with normal bowel sounds. No distension or tympany. No guarding or rebound. No evidence of tenderness throughout. Skin: Warm, dry with normal turgor. Normal color with no rashes, no lesions, and no evidence of cellulitis. MS/ Extremity: Pulses equal, no cyanosis. Neurovascular intact. Full, normal range of motion. 13:55 Neuro: Awake and alert, GCS 15, oriented to person, place, time, and situation. Cranial nerves II-XII grossly intact. Motor strength 5/5 in all extremities. Sensory grossly intact. 13:55 Back: pain, that is moderate, of the low back area, ROM is painful, normal spinal alignment noted, Straight leg raises: pain bilaterally. Vital Signs: 11:00 BP 127 / 85; Pulse 69; Resp 16; Temp 97.9; Pulse Ox 99% ; bp 12:03 BP 118 / 71; Pulse 62; Resp 17; Pulse Ox 100% ; bp 13:39 BP 107 / 73; Pulse 68; Resp 16; Pulse Ox 100% ; bp 14:34 BP 114 / 73; Pulse 70; Resp 18; Pulse Ox 100% ; bp 15:29 BP 111 / 76; Pulse 73; Resp 16; Pulse Ox 98% ; bp MDM: 10:43 Patient medically screened. shiv 15:36 Data reviewed: vital signs, nurses notes, lab test result(s), radiologic studies, MRI. 8 Data interpreted: Pulse oximetry: on room air is 98 %. Interpretation: normal. Counseling: I had a detailed discussion with the patient and/or guardian regarding: the historical points, exam findings, and any diagnostic results supporting the discharge/admit diagnosis, lab results, radiology results, the need for outpatient follow up, a family practitioner, to return to the emergency department if symptoms worsen or persist or if there are any questions or concerns that arise at home. Response to treatment: the patient's symptoms have mildly improved after treatment. ED course: No acute compression or spinal component. Discussed with patient that she needs to rest and will be on meds for rest of week. Needs to f/u with [facility] for possible PT to help after acute component . 03/04 10:43 Order name: Basic Metabolic Panel; Complete Time: 12:15 [facility] 03/04 10:43 Order name: CBC with Diff; Complete Time: 12:15 [facility] 03/04 10:45 Order name: MRI Lumbar Spine wo Con; Complete Time: 15:32 [facility] 03/04 11:12 Order name: Urine Dipstick--Ancillary (enter results); Complete Time: 12:17 03/04 11:12 Order name: Urine --Ancillary (enter results); Complete Time: 12:17 03/04 10:43 Order name: IV Saline Lock; Complete Time: 11:16 [facility] 03/04 10:43 Order name: Labs collected and sent; Complete Time: 11:16 [facility] 03/04 10:43 Order name: Urine Test (obtain specimen); Complete Time: 11:15 [facility] 03/04 10:43 Order name: Urine Dipstick-Ancillary (obtain specimen); Complete Time: 11:15 Administered Medications: 11:05 Drug: Decadron - Dexamethasone 10 mg Route: IVP; Site: right antecubital; bp 11:56 Follow up: Response: No adverse reaction bp 11:05 Drug: Robaxin 1 grams Route: IVPB; Infused Over: 1 hrs; Site: right antecubital; bp 16:01 Follow up: IV Status: Completed infusion; IV Intake: 100ml bp 11:05 Drug: TORadol - Ketorolac 15 mg Route: IVP; Site: right antecubital; bp 11:57 Follow up: Response: Pain is decreased bp 11:05 Drug: fentaNYL (PF) 50 mcg Route: IVP; Site: right antecubital; bp 11:58 Follow up: Response: Pain is decreased bp 11:05 Drug: Zofran (Ondansetron) 4 mg Route: IVP; Site: right antecubital; bp 11:58 Follow up: Response: No adverse reaction bp 12:50 Drug: fentaNYL (PF) 50 mcg Route: IVP; Site: right antecubital; bp 12:51 Follow up: Response: Pain is decreased bp 15:28 Drug: morphine 4 mg Route: IVP; Site: right antecubital; bp 15:31 Follow up: Response: No adverse reaction bp 15:29 Drug: Zofran (Ondansetron) 4 mg Route: IVP; Site: right antecubital; bp 15:31 Follow up: Response: No adverse reaction bp Disposition: 03/05 07:57 Co-signature as Attending Physician, Nathanael Wilson MD I agree with the assessment and shiv plan of care. Disposition: 03/04/20 15:38 Discharged to Home. Impression: Radiculopathy, lumbar region, Low back pain. - Condition is Stable. - Discharge Instructions: Back Pain, Adult, Lumbosacral Radiculopathy, Musculoskeletal Pain, Heat Therapy. - Prescriptions for meloxicam 15 mg Oral tablet - take 1 tablet by ORAL route once daily As needed; 20 tablet. Robaxin 500 mg Oral Tablet - take 2 tablet by ORAL route every 6 hours As needed; 40 tablet. Medrol (Sylvester) 4 mg Oral Tablets, Dose Pack - take 1 tablet by ORAL route as directed - follow package instructions; 1 packet. - Work release form, Medication Reconciliation Form, Thank You Letter, Antibiotic Education, Prescription Opioid Use form. - Follow up: Private Physician; When: 1 week; Reason: Recheck today's complaints, Continuance of care, Re-evaluation by your physician. - Problem is new. - Symptoms have improved. Signatures: Dispatcher [employer] EDMS Blanca Thomas, RN RN Nathanael Parker MD MD cha Roszak, Josh, PA PA jr8 Brian Powers RN RN bp Corrections: (The following items were deleted from the chart) 03/04 16:01 15:38 03/04/2020 15:38 Discharged to Home. Impression: Radiculopathy, lumbar region; bp Low back pain. Condition is Stable. Forms are Medication Reconciliation Form, Thank You Letter, Antibiotic Education, Prescription Opioid Use. Follow up: Private Physician; When: 1 week; Reason: Recheck today's complaints, Continuance of care, Re-evaluation by your physician. Problem is new. Symptoms have improved. jr8
[2020-03-04 16:25] VITALS: TEMP 97.9
[2020-03-04 16:32] VITALS: BP 111/76; O2SAT 98
== END 2020-03-04 16:01 | disposition home or self-care (01) ==
LOC: ER 10:19
DX: M54.16 Radiculopathy, lumbar region (principal); Z88.8 Allergy status to other drugs, medicaments and biological substances
CPT/HCPCS: 96365; 85025; 80048; 36415; 81025; 81003; 72148; 96375; 99284; 96366; J1100; J3010 ×2; J2405 ×2; J2800